=== PATIENT | female | born 1955 | race Caucasian/White ===

== ENCOUNTER 2019-06-02 19:32 | Emergency (ER) | payer MEDICARE, OTHER, SELFPAY ==
[2019-06-02 19:33] VITALS: BP 161/127; PULSE 99; RESP 22; TEMP 36; O2SAT 97; BMI 46.5
--- NOTE | 2019-06-02 20:21 | CT_ITS ---
STUDY: CT CERVICAL SPINE WITHOUT CONTRAST REASON FOR EXAM: Female, 64 years old. PT STATED SUDDEN ONSET ACUTE NECK PAIN RADIATING TO ARMS, CHEST, AND ABDOMEN RADIATION DOSAGE (If Supplied By Facility): CTDIvol = ( 28.15 ) mGy, DLP = ( 652.16 ) mGycm TECHNIQUE: High resolution transaxial imaging was performed without contrast material. Sagittal and coronal images were reconstructed. Individualized dose optimization techniques were used for this CT. COMPARISON: 08/28/2013 FINDINGS: Normal craniovertebral junction. Normal anterior atlantoaxial articulation. Normal odontoid process. Normal cervical lordosis. Normal vertebral bodies and posterior osseous elements. C2-3: Normal endplates. Normal disc height and morphology. Normal central canal and intervertebral neuroforamina. C3-4: Normal endplates. Normal disc height and morphology. Normal central canal and intervertebral neuroforamina. C4-5: Normal endplates. Normal disc height and morphology. Normal central canal and intervertebral neuroforamina. C5-6: Mild broad disc osteophyte complex and bilateral carotid joint hypertrophy produces mild spinal stenosis and mild bilateral neural foraminal stenosis. C6-7: Mild broad disc osteophyte complex and bilateral carotid joint hypertrophy produces mild spinal stenosis and mild bilateral neural foraminal stenosis. C7-T1: Normal endplates. Normal disc height and morphology. Normal central canal and intervertebral neuroforamina. Normal visualized soft tissue structures. CT/Spine Cervical without Contras IMPRESSION: Multilevel degenerative changes, as described above. Electronically Signed: Jeffrey Warner MD at 21:30 EST Tel , Service support ,
[2019-06-02] MEDS: HYDROmorphone 1 MG/ML Syringe IM ×2 (20:27→21:56)
[2019-06-02 21:48] VITALS: BP 172/83; PULSE 77; RESP 18; O2SAT 96
[2019-06-02] MEDS: Orphenadrine 60 MG/2 ML Ampul IM (21:56)
--- NOTE | 2019-06-02 22:10 | ED.DCSUM_ITS ---
- ER Visit Summary Date of Service: 06/02/19 Chief Complaint: Neck pain History of Present Illness: The patient is a 64 F who presents with neck pain that began suddenly tonight. Patient states the pain is in her posterior neck. Patient states the pain radiates into her trapezius muscles bilaterally. Jennifer gutierrez describes the pain is sharp. Patient states the pain is worse with extension. Patient states she has some pain going down both arms with some tingling in both arms. Patient denies any specific trauma or injury. Patient denies any weakness. Physical Examination: Vital signs are stable except for an elevated blood pressure 161/127. Patient is afebrile. Patient is in no acute distress. Musculoskeletal exam reveals tenderness and spasm of the cervical paraspinal muscles. There is mild midline tenderness. There is no bony crepitance or step-off. Range of motion was limited in all motions of the cervical spine secondary to pain. Strength is 5/5 bilaterally upper extremities. There are no sensory deficits noted. Heart was regular rate and rhythm. Lungs are clear and equal bilaterally. Abdomen is soft and nontender. Test Results: CT scan of the cervical spine was obtained. There are some degenerative changes noted at C5-C6 and C6-C7. There is no acute spondylolisthesis or spondylolysis. These were interpreted by the radiologist and reviewed by myself. Emergency Department Course and Treatment: Patient was given injection of Dilaudid initially. Patient was given a repeat dose of Dilaudid and Norflex. Patient states her pain was improving. Patient's blood pressure improved. P atient was given prescriptions for a short course of Dexter and Flexeril. Patient was instructed to follow-up with her primary care physician as scheduled. Patient was instructed to return if worse in any way. Patient understood and was agreeable with the plan. All questions were answered. Disposition: Discharge home Impression: Cervical strain This note was generated with [employer] dictation software. It may contain incorrect words, spelling, and punctuation that were not noted in review of the chart prior to signing ED Disposition - Plan for ED Patient: Disposition: Home or Assisted Living Diagnosis: Cervical muscle strain Instructions: NECK PAIN, No Trauma Prescriptions: cycloBENZAPRine HCl [Flexeril] 10 mg PO QHS PRN PRN #20 tab PRN Reason: Muscle Spasm Prescription Printed Hydrocodone Bitart/Apap 5-325 [Dexter 5MG-325MG] 1 tab PO Q6H PRN PRN 3 Days #10 tab PRN Reason: Pain Prescription Printed Referrals: Brittany Mercer DO [Primary Care Provider] - 3-5 Days
[2019-06-02 22:26] VITALS: BP 142/78; PULSE 92; RESP 20; O2SAT 97
--- NOTE | 2019-06-02 22:26 | ED.RN ---
THIS NURSE REVIEWED D/C INSTRUCTIONS WITH PT. PT VERBALIZED UNDERSTANDING OF INSTRUCTIONS. PT DENIES FURTHER NEEDS OR QUESTIONS AT THIS TIME
== END 2019-06-02 22:27 | disposition home or self-care (01) ==
PROVIDERS: Emergency Provider Emergency Medicine
DX: S16.1XXA Strain of muscle, fascia and tendon at neck level, initial encounter (principal); X58.XXXA Exposure to other specified factors, initial encounter; Y93.9 Activity, unspecified; Y92.9 Unspecified place or not applicable; I25.10 Atherosclerotic heart disease of native coronary artery without angina pectoris; I10 Essential (primary) hypertension; K21.9 Gastro-esophageal reflux disease without esophagitis; E66.9 Obesity, unspecified; Z95.1 Presence of aortocoronary bypass graft; Z68.42 Body mass index [BMI] 45.0-49.9, adult
CPT/HCPCS: 72125; 96372; 99282

== ENCOUNTER → 2019-10-26 11:22 | Outpatient (CLI) | payer MEDICARE, OTHER, SELFPAY | PROVIDERS: Referring Provider Internal Medicine Gastroenterology; Visit Provider Internal Medicine Gastroenterology | DX: Z11.59 Encounter for screening for other viral diseases (principal) | CPT/HCPCS: 87635; G2023; U0003 ==

== ENCOUNTER 2020-06-12 10:14 | Outpatient (RCR) | payer MEDICARE, OTHER, SELFPAY ==
[2020-06-12] MEDS: COVID-19 VACC, MRNA(PFIZER)/PF 30 MCG/0.3 ML SYRINGE IM (16:57)
[2020-07-03] MEDS: COVID-19 VACC, MRNA(PFIZER)/PF 30 MCG/0.3 ML SYRINGE IM (16:11)
== END 2020-09-16 23:59 ==
LOC: IMMUN 10:14
PROVIDERS: Visit Provider Family Medicine
DX: Z23 Encounter for immunization (principal)
CPT/HCPCS: 0001A; 0002A; 91300

== ENCOUNTER → 2020-11-24 07:37 | Outpatient (CLI) | payer MEDICARE, OTHER, SELFPAY ==
--- NOTE | 2020-11-24 07:38 | CT_ITS ---
STUDY: LOW DOSE CT LUNG CANCER SCREENING REASON FOR EXAM: Female, 65 years old. Former smoker. Patient smoked 1 pack per day for 42 years. RADIATION DOSAGE (If Supplied By Facility): CTDIvol = ( 4.02 ) mGy, DLP = ( 136.42 ) mGycm TECHNIQUE: No contrast was administered. Low dose technique was utilized (average mAS-38 and kVp 120). 1.25 mm axial source images with a slice interval of 1.25-mm were reconstructed in lung windows. 2.5 mm axial source images with a slice interval of 2.5-mm were reconstructed in lung windows. 5.0 mm axial source images with a slice interval of 5.0-mm were reconstructed in soft tissue windows. Nodule measured using lung windows on PACS and/or independent workstation with automated measurement of minimum and maximum diameter. Nodule measurement reported as average diameter rounded to the nearest whole number. Growth is defined as an increase ins size of greater than 1.5 mm. COMPARISON: None. NODULES: There is a 4.1 mm pleural-based nodule in the left lower lobe as seen on axial image #137. 2 mm noncalcified nodule in the peripheral lateral aspect of the right upper lobe as seen on axial image #72. Emphysema: Mild degree of increased markings at the lung bases. There is elevation of the right hemidiaphragm. There is a 1.3 cm x 1.6 cm pleural-based nodular density in the posterior right lower lobe adjacent to the right hemidiaphragm. This may represent a focal area of scarring although correlation with a PET scan is recommended. Endobronchial lesion: None Aorta: Atherosclerotic plaque formation of the aortic arch. Coronary arteries: Prior catheters. Coronary artery calcification. Heart: Unremarkable Pulmonary artery: Unremarkable Mediastinal nodes: Other chest and abdominal findings: CT/Low Dose CT Lung Screening IMPRESSION: Lung-RADS category 4A - Screening at 3 months with LDCT or evaluation with PET/CT may be used. IMPORTANT NOTES FOR USE: ACR Lung-RADS Version 1.1 Assessment Categories Release Date: 2018 Category: Coded 0-4 bases on nodule(s) with highest degree of suspicion. Negative screen is defined as categories 1 and 2; a positive screen is defined as categories 3 and 4. Category 3 and 4A nodules that are unchanged on interval CT should be coded as category 2, and individuals returned to screening in 12 months. Category 4X: Category 3 or 4 nodules with additional imaging findings that increase the suspicion of lung cancer, such as spiculation, GGN that doubles in size in 1 year, enlarged lymph notes, etc. Category Modifiers: S (significant finding unrelated to lung cancer) Electronically Signed: Cam Castro MD at 15:18 EDT , Service support ,
== END ==
PROVIDERS: Referring Provider Internal Medicine Pulmonary Disease; Visit Provider Internal Medicine Pulmonary Disease
DX: Z12.2 Encounter for screening for malignant neoplasm of respiratory organs (principal); Z87.891 Personal history of nicotine dependence
CPT/HCPCS: 71271

== ENCOUNTER → 2021-02-17 16:00 | Outpatient (CLI) | payer MEDICARE, OTHER, SELFPAY ==
--- NOTE | 2021-02-17 15:00 | PET_ITS ---
EXAMINATION: FDG PET-CT INDICATIONS: A 66-year-old female with reported history of pulmonary nodularity. COMPARISON EXAMINATION: CT of the chest report dated 11/26/20 TECHNIQUE: Following the intravenous administration of 17.53 mCi of F-18 deoxyglucose via the right antecubital fossa, multiplanar image acquisitions of the neck, chest, abdomen and pelvis to level of mid thigh, obtained at one hour post radiopharmaceutical administration contemporaneously interpreted with the current CT of the neck, chest, abdomen and pelvis, to level of mid thigh, dated 02/17/[address] of the chest report dated 11/26/20 reveals: BLOOD GLUCOSE LEVEL:?? 120 mg/dl?HEIGHT:?65 inches?WEIGHT: 280 lbs. FINDINGS: 1. There is no quantitative scintigraphic evidence of abnormal increased glucose metabolism within the context of the bilateral hemithorax pulmonary parenchyma non-glucose avid parenchymal densities defined in the right-left lower lobes to correlate with structural changes noted on review of CT of the thorax dated 02/17/21. 2. Normal physiologic distribution of the radiopharmaceutical is apparent in the hepatic and splenic parenchyma, both renal units, bladder and visualized intestinal tract. The visualized portion of the cerebral cortical-subcortical structures demonstrate symmetric and preserved glucose metabolism. Diffuse radiopharmaceutical concentration is noted in all four quadrants of the abdomen and pelvis. The right kidney demonstrates markedly prominent collecting system activity extending from the superior to inferior calyx, renal pelvis and proximal-mid ureter. Pertinent CT findings are as follows: CHEST: None-calcified densities noted in the right lower posteromedial, left lower posterolateral lung zones (R-L lower lobes) demonstrate no evidence of quantitatively significant-discernible increased FDG uptake. Bilateral subcentimeter axillary soft tissue is ametabolic. There is atherosclerotic calcification defined in the thoracic aorta without evidence of dilatation-aneurysm formation. Coronary arterial calcification is observed. ABDOMEN AND PELVIS: A paraumbilical hernia is noted with associated intestinal tract. There is atherosclerotic calcification defined in the abdominal aorta without evidence of dilatation-aneurysm formation. Pelvic arterial calcification is observed. Calcification is defined within the right kidney. Bilateral subcentimeter inguinal soft tissue is non-glucose avid. The uterus appears surgically absent. Calcifications are noted in the bilateral lower hemipelvis. SKELETAL: Degenerative changes are noted in the cervical, thoracic and lumbar spine without evidence of increased radiopharmaceutical concentration. PET/PET/CT Tumor Base -Thigh Init IMPRESSION: 1. NEGATIVE EXAMINATION. There is no quantitative scintigraphic evidence of abnormal increased glucose metabolism within the context of the bilateral hemithorax pulmonary parenchyma non-glucose avid parenchymal densities defined in the right-left lower lobes to correlate with structural changes noted on review of CT of the thorax dated 02/17/21. 2. Anatomic stability may be ensured in the nonglucose avid bilateral hemithorax pulmonary parenchymal densities defined with repeat FDG PET-CT imaging and/or CT of the chest in 3-6 months if clinically indicated. (Naga, Seminars in Thoracic and Cardiovascular Surgery 14:292, 2001). Electronic Signature Jeffrey Lobo D.O. Accurate Quantification of SUVs for this report are calculated using the exclusive [employer]. (U.S. Patent No. [id number] [id number] 983). Standardization and correction of the FDG SUV metric via [employer] technology allow for vendor non-specific objective quantitative examination comparison and optimization of the sensitivity and specificity of the FDG PET-CT examination. Electronically Signed: Jeffrey Lobo DO at 22:54 EST Tel , Service support ,
== END ==
PROVIDERS: Referring Provider Internal Medicine Pulmonary Disease; Visit Provider Internal Medicine Pulmonary Disease
DX: R91.1 Solitary pulmonary nodule (principal)
CPT/HCPCS: 78815; A9552

== ENCOUNTER 2021-06-09 10:22 | Outpatient (CLI) | payer MEDICARE, OTHER, SELFPAY ==
--- NOTE | 2021-06-09 10:38 | RAD_ITS ---
STUDY: X-RAY CHEST REASON FOR EXAM: Female, 66 years old. Chest pain TECHNIQUE: PA and lateral views of the chest. COMPARISON: None. FINDINGS: Chronic elevation of the right hemidiaphragm There are interstitial fibrotic changes of the lungs. There is no demonstrated pleural abnormality. Sternal cerclage wires and vascular clips are present from a prior sternotomy and coronary artery bypass graft procedure (CABG). Normal mediastinum and julien. Normal visualized pulmonary arteries. There is atherosclerotic calcification of the aortic arch with tortuosity. Normal visualized thoracic spine. Normal visualized ribs, clavicles, and shoulders. There is no demonstrated abnormality of the visualized soft tissue structures of the upper abdomen. RAD/Chest PA and Lateral IMPRESSION: Degenerative changes, as described above. No demonstrated acute cardiopulmonary process. Electronically Signed: Maykel Luna MD at 17:10 EST ,
[2021-06-09 11:57] LABS: Ferritin 4 ng/mL (8-252)
== END 2021-06-09 23:59 | disposition home or self-care (01) ==
LOC: LAB 10:28
PROVIDERS: Referring Provider Internal Medicine Pulmonary Disease; Visit Provider Internal Medicine Pulmonary Disease
DX: R91.1 Solitary pulmonary nodule (principal); G25.81 Restless legs syndrome; Z86.2 Personal history of diseases of the blood and blood-forming organs and certain disorders involving the immune mechanism
CPT/HCPCS: 36415; 71046; 82728

== ENCOUNTER → 2021-08-07 | Outpatient (CLI) | payer MEDICARE, OTHER, SELFPAY ==
[2021-08-07 12:09] LABS: Hematocrit 39.1 % (37-47); Hemoglobin 11.8 g/dL (12.0-15.0); Mean Corp Hgb Conc 30.2 g/dL (32-36); Mean Corpuscular Volume 86.3 fL (81-99); Mean Platelet Vol. 10.6 fl (6.2-12.0); Platelet Count 257 K/mm3 (150-450); Red Blood Count 4.53 M/mm3 (4.2-5.4); White Blood Count 4.9 K/mm3 (4.4-11.0)
[2021-08-07 12:26] LABS: Iron 29 ug/dL (50-170); Iron Binding Capacity,Total 416 ug/dL (250-450)
== END | disposition home or self-care (01) ==
LOC: MTLAB 10:27
PROVIDERS: Referring Provider Internal Medicine Pulmonary Disease; Visit Provider Internal Medicine Pulmonary Disease
DX: D64.9 Anemia, unspecified (principal)
CPT/HCPCS: 36415; 83540; 83550; 85027

== ENCOUNTER 2021-08-21 12:47 | Day surgery (SDC) | payer MEDICARE, OTHER, SELFPAY ==
--- NOTE | 2021-08-20 08:35 | RAD_ITS ---
STUDY: X-RAY - ABDOMEN/PELVIS REASON FOR EXAM: Female, 66 years old. PRE-OP -- WILL CALL WHEN DONE WITH PRE-OP SWAB TECHNIQUE: Preop COMPARISON: None. FINDINGS: Normal visualized lung bases. There is an unremarkable bowel gas pattern. There is no demonstrated free abdominal air. The visualized liver, spleen and kidneys are grossly normal in size and morphology. Possible gallstone at the right upper quadrant. Normal soft tissue structures. Normal visualized osseous structures. RAD/Abdomen Single View IMPRESSION: Normal x-ray examination of the abdomen and pelvis. Possible gallstone. Electronically Signed: Daniel Manning MD at 23:10 EDT ,
[2021-08-21 12:59] VITALS: BP 145/72; PULSE 66; RESP 16; TEMP 36.9; O2SAT 98; BMI 43.1
--- NOTE | 2021-08-21 12:59 | RAD_ITS ---
STUDY: X-RAY - ABDOMEN/PELVIS REASON FOR EXAM: Female, 66 years old. PRE OP TECHNIQUE: Single AP view of the abdomen / pelvis. COMPARISON: None. FINDINGS: Normal visualized lung bases. There is an unremarkable bowel gas pattern. There is no demonstrated free abdominal air. 2 cm calcification overlies the right kidney, possible nephrolithiasis. There are calcified phleboliths in the pelvis. There are diffuse degenerative changes of the visualized lumbar spine. RAD/Abdomen Single View IMPRESSION: Nonobstructive bowel gas pattern. Suspect right renal calculus. Electronically Signed: Daron Carrington MD ([place]) at 17:26 EDT ,
[2021-08-21] MEDS: Lactated Ringers 1,000 ML 15 ML IV (13:41)
--- NOTE | 2021-08-21 15:19 | HP.PCM_ITS ---
HPI - General HPI Narrative DIOMEDES CASE, is a 66 F who presents for ESWL and treatment of right kindey stone treatment. [facility] Medical History (Updated 08/21/21 @ 15:[address] Luke Marshall MD) Alcohol use Anemia Arthritis Asthma Back pain Cardiology follow-up encounter COPD (chronic obstructive pulmonary disease) Former smoker Gastric reflux High cholesterol History of echocardiogram History of pain when walking History of stress test History of ulceration Hypertension Injury of back Post-menopausal Restless legs Shortness of breath on exertion Sleep apnea Wears glasses Home Medications omeprazole 40 mg PO BID 08/28/13 [History Last Taken 08/21/21] furosemide 20 mg PO DAILY 06/02/19 [History Last Taken Unknown] gabapentin 400 mg PO Q6H 06/02/19 [History Last Taken Unknown] losartan 100 mg PO DAILY 06/02/19 [History Last Taken 08/21/21] metoprolol tartrate 25 mg PO DAILY 06/02/19 [History Last Taken 08/21/21] ropinirole 1 mg PO TID 06/02/19 [History Last Taken Unknown] Breo Ellipta 1 inh INHALATION DAILY 08/18/21 [History Last Taken Unknown] albuterol sulfate 2 puff INHALATION PRN PRN 08/18/21 [History Last Taken Unknown] amlodipine 2.5 mg PO DAILY 08/18/21 [History Last Taken 08/21/21] atorvastatin 40 mg PO DAILY 08/18/21 [History Last Taken Unknown] cyclosporine [Restasis] 1 drp EACH EYE Q12H 08/18/21 [History Last Taken Unknown] ferrous gluconate 648 mg PO DAILY 08/18/21 [History Last Taken Unknown] mirtazapine 7.5 mg PO QHS 08/18/21 [History Last Taken Unknown] montelukast 10 mg PO DAILY 08/18/21 [History Last Taken Unknown] ciprofloxacin HCl [Cipro] 500 mg PO BID #10 tab 08/21/21 [Rx Last Taken Unknown] oxycodone-acetaminophen 1 tab PO Q4H PRN 7 Days #14 tab 08/21/21 [Rx Last Taken Unknown] Allergy/AdvReac Type Severity Reaction Status Date / Time codeine AdvReac Nausea/Vom/ Verified 08/21/21 13:41 Diarrhea meloxicam [From Mobic] AdvReac Other Verified 08/21/21 13:41 morphine AdvReac Other Verified 08/21/21 13:41 Penicillins AdvReac Other Verified 08/21/21 13:41 Surgical History (Updated 08/18/21 @ 11:31 by Suzie Jones) History of cardiac catheterization Hx laparoscopic cholecystectomy Hx of gastric bypass Hx of heart bypass surgery Social History Smoking Status: Former smoker Vital Signs Vital Signs Vital Signs: 08/21/21 12:59 08/21/21 13:39 Temperature 98.4 F Temperature Source Temporal Pulse Rate 66 Respiratory Rate 16 Respiratory Pattern Normal Blood Pressure 145/72 H Blood Pressure Mean 96 Blood Pressure Source Monitor Blood Pressure Position Semi-Fowlers Blood Pressure Location Right Arm Pulse Ox 98 Oxygen Delivery Method Room Air Weight Weight: 117.48 kg Body Mass Index (BMI) 43.1 Results Lab / Micro Data Micro: Microbiology 08/20/21 08:35 Interface Orders SARS-CoV-2 Antigen (Rapid) - Final Radiology Impression KUB X-Ray 08/20/21 08:35 IMPRESSION: Normal x-ray examination of the abdomen and pelvis. Possible gallstone. Electronically Signed: Daniel Manning MD at 23:10 EDT ,
--- NOTE | 2021-08-21 15:19 | PCM.DC ---
Discharge Instructions Diet Discharge Diet: No restrictions Activity Discharge Activity: Return to Normal Activity and May Not Drive (while taking narcotic pain medications.) Dressing / Incision Call your doctor if you observe: Fever of 101 or Higher Follow Up Care Please Follow Up With: Luke Marshall MD When: Call [phone] for an appointment Test Results: Test results from this visit will be discussed in further detail at your follow-up appointment, if applicable. Discharge Plan Admission Primary Reason for Your Visit: Right ESWL Attending Provider: Luke Marshall Primary Care Provider: Brittany Mercer Instructions Patient Instructions: Shock Wave Lithotripsy Discharge Orders/Prescriptions Prescriptions: New ciprofloxacin HCl [Cipro] 500 mg tablet 500 mg PO BID Qty: 10 RF: 0 oxycodone-acetaminophen 2.5-325 mg tablet 1 tab PO Q4H PRN (Reason: pain) 7 Days Qty: 14 RF: 0 Continued omeprazole 20 MG capsule 40 mg PO BID RF: 0 losartan 100 MG tablet 100 mg PO DAILY RF: 0 metoprolol tartrate 25 MG tablet 25 mg PO DAILY RF: 0 ropinirole 1 MG tablet 1 mg PO TID RF: 0 gabapentin 300 MG capsule 400 mg PO Q6H RF: 0 furosemide 20 MG tablet 20 mg PO DAILY RF: 0 atorvastatin 40 mg tablet 40 mg PO DAILY RF: 0 amlodipine 2.5 mg tablet 2.5 mg PO DAILY RF: 0 montelukast 10 mg tablet 10 mg PO DAILY RF: 0 albuterol sulfate 90 mcg/actuation HFA aerosol inhaler 2 puff INHALATION PRN PRN (Reason: COPD) RF: 0 cyclosporine [Restasis] 0.05 % Dropperette 1 drp EACH EYE Q12H RF: 0 mirtazapine 7.5 mg tablet 7.5 mg PO QHS RF: 0 ferrous gluconate 325 mg (37.5 mg iron) Tablet 648 mg PO DAILY RF: 0 Breo Ellipta 200-25 mcg/dose blister with device 1 inh INHALATION DAILY RF: 0 Discontinued aspirin 81 mg Capsule 81 mg PO DAILY RF: 0 Referrals / Follow Up: Luke Marshall MD [STAFF PHYSICIAN] - Brittany Mercer DO [Primary Care Provider] - Disposition Disposition (needs filled in before D/C Order can be placed): Home, Self Care
[2021-08-21] MEDS: Cefazolin 2 GM in 0.9% Normal Saline 100 ML IV (15:31)
--- NOTE | 2021-08-21 16:21 | PCM.OPRPT ---
Report of Operation Date of Procedure: 08/21/21 Pre-Operative Diagnosis: right large kidney stone Post-Operative Diagnosis: same Surgery/Procedure Performed:: cystoscopy and right stent placement and Right ESWL Description of Surgical Findings:: Patient presents to the hospital for treatment of a kidney stone with shockwave lithotripsy. In the preoperative area and x-ray was done to confirm the location of the stone. The x-ray was reviewed and the stone location was reviewed. In the preoperative setting I spoke with the patient regarding the treatment of the stone how the treatment would be conducted and the expectations after surgery. The patient understands there is a risk of bleeding and infection. Also discussed the very rare risk of hematoma or damage to the kidney. We also discussed the risk that the shockwave machine will fail to break the stone adequately and that the patient may need other surgical procedures. We also discussed the possibility that the patient may need a stent after the procedure. After reviewing the procedure with the patient, the patient is signed the consent form all the patient's questions were addressed and was taken back to the operating room for treatment of a kidney stone. Patient was taken back to the operating room, patient was identified by the nursing staff, we identified the side of the treatment and the patient side of treatment had been marked by my initials. The patient underwent general anesthetic and was placed supine on the lithotripter table. The urethra and genitals were prepped and draped in usual sterile fashion. Using a 21 Portuguese rigid cystourethroscope the entire length of the urethra was normal then went into the bladder. Identified the trigone the left and right ureteral orifice. I then cannulated the right orifice and advanced a wire up into the kidney. I then backloaded a 5 Portuguese open ended catheter over the wire and injected contrast to delineate the anatomy. After the retrograde was performed I then used fluoroscopic images and guidance to advanced a wire up into the kidney and over the 0.038 glidewire I advanced a 6 Portuguese by 26 cm double pigtail stent. I then pulled the 0.038 Glidewire off and the stent coiled in the kidney bladder good position. The bladder was then drained. We confirmed the position of the stent by fluoroscopy. We then used fluoroscopy to identify the stone on the Right side. We then positioned the patient under the lithotripter and we used triangulation technique to identify the location of the stone and then we made sure that the stone was engaged in the F2 focal point of F2 Donier lithoprior machine. Once the patient was positioned appropriately and the stone was identified and placed in the F2 focal point of the lithotripter machine we then proceeded with shockwave lithotripsy. In the beginning the shockwave was delivered at a rate of 90 shocks per minute, we monitor the EKG for any ectopy. The power was slowly increased to 5 kV and subsequently at the 7 kV. We then proceeded with the treatment we move the therapy had around during the treatment to make sure the stone stayed in the F2 focal point during the entire treatment and after 3000 shockwaves were delivered to the stone under fluoroscopic guidance the treatment was completed. The patient was given instructions to call the office to make an a follow-up appointment with an xray to evaluate the success of the treatment, pateint understands that its possible the stones may need another procedure, the stone did break up really well but such a large stone, she very likely will need one more treatment. At this point the patient's anesthetic was reversed patient was extubated and taken back to the PACU in stable condition. Type of Anesthesia: General Drains: right stent Admit VTE Documentation VTE Present on Admission: No VTE Mechan Device Prophylaxis: SCD's VTE Pharm Prophylaxis ordered?: No
[2021-08-21 16:30] VITALS: BP 145/72; BP 148/74; PULSE 67; RESP 16; TEMP 36.4; O2SAT 98
[2021-08-21 16:45] VITALS: BP 145/72; BP 155/84; PULSE 73; RESP 16; O2SAT 100
[2021-08-21 16:55] VITALS: BP 145/72; BP 162/75; PULSE 64; RESP 16; TEMP 36.3; O2SAT 96
[2021-08-21 17:25] VITALS: BP 145/72
[2021-08-21 17:26] VITALS: BP 145/72
== END 2021-08-21 17:36 | disposition home or self-care (01) ==
LOC: SDC 12:47 → AC 12:49
PROVIDERS: Referring Provider Urology; Visit Provider Urology
PROC: (CPT 50590; principal; 2021-08-21 15:55)
DX: N20.0 Calculus of kidney (principal); J43.9 Emphysema, unspecified; J45.20 Mild intermittent asthma, uncomplicated; Z20.822 Contact with and (suspected) exposure to COVID-19; I10 Essential (primary) hypertension; E78.00 Pure hypercholesterolemia, unspecified; K21.9 Gastro-esophageal reflux disease without esophagitis; Z79.899 Other long term (current) drug therapy; Z78.0 Asymptomatic menopausal state; Z87.891 Personal history of nicotine dependence; Z98.84 Bariatric surgery status; Z95.1 Presence of aortocoronary bypass graft
CPT/HCPCS: 52332; 00873; 74018; 87426; C9803; J7120; C1769; C2617; J2405

== ENCOUNTER → 2021-08-27 | Outpatient (CLI) | payer MEDICARE, OTHER, SELFPAY ==
--- NOTE | 2021-08-27 08:55 | RAD_ITS ---
STUDY: X-RAY - ABDOMEN/PELVIS REASON FOR EXAM: Female, 66 years old. POST OP TECHNIQUE: Two AP supine views of the abdomen and pelvis. COMPARISON: None. FINDINGS: Right ureteral stent in good position. 2 clusters of stone fragments seen in the right kidney measuring respectively 10 mm and 25 mm. There is an unremarkable bowel gas pattern. There is no demonstrated free abdominal air. The visualized liver, spleen are grossly normal in size and morphology. Normal soft tissue structures. There are diffuse degenerative changes of the visualized lumbar spine. RAD/Abdomen Single View IMPRESSION: Right ureteral stent in good position. 2 clusters of stone fragments seen in the right kidney measuring respectively 10 mm and 25 mm. Electronically Signed: Tamica Cormier MD at 1:34 EDT ,
== END | disposition home or self-care (01) ==
LOC: RAD 08:49
PROVIDERS: Referring Provider Urology; Visit Provider Urology
DX: N20.0 Calculus of kidney (principal)
CPT/HCPCS: 74018

== ENCOUNTER 2021-09-04 07:52 | Day surgery (SDC) | payer MEDICARE, OTHER, SELFPAY ==
[2021-09-04] VITALS (8 sets, daily range): BP systolic 144–192; BP diastolic 66–84; PULSE 53–65; RESP 16–17; TEMP 35.6–37.3; O2SAT 91–97; BMI 43.4
--- NOTE | 2021-09-04 08:04 | RAD_ITS ---
HISTORY: PREOP RIGHT KIDNEY STONE. TECHNIQUE: XR Abdomen 1 View. COMPARISON: 08/27/2021. FINDINGS: BOWEL GAS PATTERN: Gaseous distention of bowel. FREE AIR: Not assessed on supine view. CALCIFICATIONS: Large right renal calculi again seen with double-J ureteral stent noted. Bilateral pelvic phleboliths. BONES AND SOFT TISSUES: Mild degenerative changes of the osseous structures. Midline sternotomy. Surgical clips in the left upper quadrant. RAD/Abdomen Single View IMPRESSION: Redemonstration of large right renal calculi with double-J ureteral stent noted. Electronically Signed: Cindi Flores MD at 8:27 EDT ,
[2021-09-04] MEDS: Lactated Ringers 1,000 ML 15 ML IV (08:48)
[2021-09-04] MEDS: Cefazolin 2 GM in 0.9% Normal Saline 100 ML IV (10:15)
--- NOTE | 2021-09-04 10:15 | HP.PCM_ITS ---
HPI - General HPI Narrative DIOMEDES CASE, is a 66 F who presents for second stage shockwave treatment of her large stones in the right kidney she underwent shockwave lithotripsy about 2 weeks ago she still has significant fragments left has a initial stone was a very large. She understands it is possible she may need more than 1 more t reatment since it is such a large stone. [facility] Medical History Alcohol use Anemia Arthritis Asthma Back pain Cardiology follow-up encounter COPD (chronic obstructive pulmonary disease) Former smoker Gastric reflux High cholesterol History of echocardiogram History of pain when walking History of stress test History of ulceration Hypertension Injury of back Post-menopausal Restless legs Shortness of breath on exertion Sleep apnea Wears glasses Home Medications omeprazole 40 mg PO BID 08/28/13 [History Last Taken 08/21/21] furosemide 20 mg PO DAILY 06/02/19 [History Last Taken Unknown] gabapentin 400 mg PO Q6H 06/02/19 [History Last Taken Unknown] losartan 100 mg PO DAILY 06/02/19 [History Last Taken 08/21/21] metoprolol tartrate 25 mg PO DAILY 06/02/19 [History Last Taken 08/21/21] ropinirole 1 mg PO TID 06/02/19 [History Last Taken Unknown] Breo Ellipta 1 inh INHALATION DAILY 08/18/21 [History Last Taken Unknown] albuterol sulfate 2 puff INHALATION PRN PRN 08/18/21 [History Last Taken Unknown] amlodipine 2.5 mg PO DAILY 08/18/21 [History Last Taken 08/21/21] atorvastatin 40 mg PO DAILY 08/18/21 [History Last Taken Unknown] cyclosporine [Restasis] 1 drp EACH EYE Q12H 08/18/21 [History Last Taken Unknown] ferrous gluconate 648 mg PO DAILY 08/18/21 [History Last Taken Unknown] mirtazapine 7.5 mg PO QHS 08/18/21 [History Last Taken Unknown] montelukast 10 mg PO DAILY 08/18/21 [History Last Taken Unknown] oxycodone-acetaminophen 1 tab PO Q4H PRN 7 Days #14 tab 08/21/21 [Rx Last Taken Unknown] sulfamethoxazole-trimethoprim [Bactrim DS] 1 tab PO BID 05/23/22 [History Last Taken Unknown] ciprofloxacin HCl [Cipro] 500 mg PO BID #6 tab 09/04/21 [Rx Last Taken Unknown] ibuprofen 600 mg PO Q6H PRN #14 tab 09/04/21 [Rx Last Taken Unknown] oxycodone-acetaminophen 1 tab PO Q6H PRN 7 Days #20 tab 09/04/21 [Rx Last Taken Unknown] Allergy/AdvReac Type Severity Reaction Status Date / Time codeine AdvReac Nausea/Vom/ Verified 09/04/21 08:45 Diarrhea meloxicam [From Mobic] AdvReac Other Verified 09/04/21 08:45 morphine AdvReac Other Verified 09/04/21 08:45 Penicillins AdvReac Other Verified 09/04/21 08:45 Surgical History (Updated 08/31/21 @ 14:57 by Tessie Fuentes) History of cardiac catheterization History of cystoscopy Hx laparoscopic cholecystectomy Hx of gastric bypass Hx of heart bypass surgery Social History Smoking Status: Former smoker Vital Signs Vital Signs Vital Signs: 09/04/21 08:45 Temperature 99.1 F Temperature Source Temporal Pulse Rate 65 Respiratory Rate 16 Respiratory Pattern Normal Blood Pressure 144/84 H Blood Pressure Mean 104 Blood Pressure Source Monitor Blood Pressure Position Semi-Fowlers Blood Pressure Location Right Arm Pulse Ox 95 Oxygen Delivery Method Room Air Weight Weight: 118.388 kg Body Mass Index (BMI) 43.4 Results Radiology Impression KUB X-Ray 09/04/21 08:04 IMPRESSION: Redemonstration of large right renal calculi with double-J ureteral stent noted. Electronically Signed: Cindi Flores MD at 8:27 EDT ,
--- NOTE | 2021-09-04 10:16 | PCM.DC ---
Discharge Instructions Diet Discharge Diet: No restrictions Activity Discharge Activity: Return to Normal Activity and May Not Drive (while taking narcotic pain medications.) Dressing / Incision Call your doctor if you observe: Fever of 101 or Higher Follow Up Care Please Follow Up With: Luke Marshall MD When: Call [phone] for an appointment Test Results: Test results from this visit will be discussed in further detail at your follow-up appointment, if applicable. Discharge Plan Admission Primary Reason for Your Visit: 2nd stage ESWL Attending Provider: Luke Marshall Primary Care Provider: Brittany Mercer Instructions Patient Instructions: Shock Wave Lithotripsy Discharge Orders/Prescriptions Prescriptions: New ciprofloxacin HCl [Cipro] 500 mg tablet 500 mg PO BID Qty: 6 RF: 0 oxycodone-acetaminophen 5-325 mg tablet 1 tab PO Q6H PRN (Reason: pain) 7 Days Qty: 20 RF: 0 ibuprofen 600 mg tablet 600 mg PO Q6H PRN (Reason: severe pain (scale score 7-10)) Qty: 14 RF: 0 Continued omeprazole 20 MG capsule 40 mg PO BID RF: 0 losartan 100 MG tablet 100 mg PO DAILY RF: 0 metoprolol tartrate 25 MG tablet 25 mg PO DAILY RF: 0 ropinirole 1 MG tablet 1 mg PO TID RF: 0 gabapentin 300 MG capsule 400 mg PO Q6H RF: 0 furosemide 20 MG tablet 20 mg PO DAILY RF: 0 atorvastatin 40 mg tablet 40 mg PO DAILY RF: 0 amlodipine 2.5 mg tablet 2.5 mg PO DAILY RF: 0 montelukast 10 mg tablet 10 mg PO DAILY RF: 0 albuterol sulfate 90 mcg/actuation HFA aerosol inhaler 2 puff INHALATION PRN PRN (Reason: COPD) RF: 0 cyclosporine [Restasis] 0.05 % Dropperette 1 drp EACH EYE Q12H RF: 0 mirtazapine 7.5 mg tablet 7.5 mg PO QHS RF: 0 ferrous gluconate 325 mg (37.5 mg iron) Tablet 648 mg PO DAILY RF: 0 Breo Ellipta 200-25 mcg/dose blister with device 1 inh INHALATION DAILY RF: 0 oxycodone-acetaminophen 2.5-325 mg tablet 1 tab PO Q4H PRN (Reason: pain) 7 Days Qty: 14 RF: 0 sulfamethoxazole-trimethoprim [Bactrim DS] 800-160 mg Tablet 1 tab PO BID RF: 0 Referrals / Follow Up: Luke Marshall MD [STAFF PHYSICIAN] - Brittany Mercer DO [Primary Care Provider] - Disposition Disposition (needs filled in before D/C Order can be placed): Home, Self Care
--- NOTE | 2021-09-04 10:48 | PCM.OPRPT ---
Report of Operation Date of Procedure: 09/04/21 Pre-Operative Diagnosis: Status post ESWL for 1s5 stage very large right kidney stone Post-Operative Diagnosis: Same Surgery/Procedure Performed:: Right extracorporeal shockwave lithotripsy, stage related procedure Description of Surgical Findings:: Patient presents to the hospital for treatment of a kidney stone with shockwave lithotripsy. In the preoperative area and x-ray was done to confirm the location of the stone. The x-ray was reviewed and the stone location was reviewed. In the preoperative setting I spoke with the patient regarding the treatment of the stone how the treatment would be conducted and the expectations after surgery. The patient understands there is a risk of bleeding and infection. Also discussed the very rare risk of hematoma or damage to the kidney. We also discussed the risk that the shockwave machine will fail to break the stone adequately and that the patient may need other surgical procedures. We also discussed the possibility that the patient may need a stent after the procedure. After reviewing the procedure with the patient, the patient is signed the consent form all the patient's questions were addressed and was taken back to the operating room for treatment of a kidney stone. Patient was taken back to the operating room, patient was identified by the nursing staff, we identified the side of the treatment and the patient side of treatment had been marked by my initials. The patient underwent general anesthetic and was placed supine on the lithotripter table. We then used fluoroscopy to identify the stone framents on the Right side. We then positioned the patient under the lithotripter and we used triangulation technique to identify the location of the stone and then we made sure that the stone was engaged in the F2 focal point of F2 Donier lithoprior machine. Once the patient was positioned appropriately and the stone was identified and placed in the F2 focal point of the lithotripter machine we then proceeded with shockwave lithotripsy. In the beginning the shockwave was delivered at a rate of 90 shocks per minute, we monitor the EKG for any ectopy. The power was slowly increased to 5 kV and subsequently at the 7 kV. We then proceeded with the treatment we move the therapy had around during the treatment to make sure the stone stayed in the F2 focal point during the entire treatment and after 3000 shockwaves were delivered to the stones under fluoroscopic guidance the treatment was completed. The patient was given instructions to call the office to make an a follow-up appointment with an xray to evaluate the success of the treatment, pateint understands that its possible the stones may need another procedure.At this point the patient's anesthetic was reversed patient was extubated and taken back to the PACU in stable condition. Surgeon: leann Type of Anesthesia: General Drains: stent in place Admit VTE Documentation VTE Present on Admission: No VTE Mechan Device Prophylaxis: SCD's VTE Pharm Prophylaxis ordered?: No
[2021-09-04] MEDS: Sodium Citrate/Citric Acid 30 ML UDC PO (11:48)
== END 2021-09-04 12:30 | disposition home or self-care (01) ==
LOC: SDC 07:55 → AC 07:55
PROVIDERS: Referring Provider Urology; Visit Provider Urology
PROC: (CPT 50590; principal; 2021-09-04 10:10)
DX: N20.0 Calculus of kidney (principal); J44.9 Chronic obstructive pulmonary disease, unspecified; I25.10 Atherosclerotic heart disease of native coronary artery without angina pectoris; I10 Essential (primary) hypertension; E78.00 Pure hypercholesterolemia, unspecified; K21.9 Gastro-esophageal reflux disease without esophagitis; M19.90 Unspecified osteoarthritis, unspecified site; Z95.5 Presence of coronary angioplasty implant and graft; Z98.84 Bariatric surgery status; Z79.82 Long term (current) use of aspirin; Z79.899 Other long term (current) drug therapy; Z87.891 Personal history of nicotine dependence
CPT/HCPCS: 50590; 00873; 74018; J7120; J2405

== ENCOUNTER → 2021-09-10 | Outpatient (CLI) | payer MEDICARE, OTHER, SELFPAY ==
--- NOTE | 2021-09-10 13:35 | RAD_ITS ---
EXAM: XR ABDOMEN, 1 VIEW CLINICAL INDICATION: CALCULUS OF KIDNEY Technologist Notes PAIN ON RIGHT SIDE. PATIENT STATES HX KIDNEY STONES. HX OF LITHOTRIPSY LAST TUESDAY. TECHNIQUE: Frontal supine view of the abdomen/pelvis. This report was created using [employer] report generation technology. COMPARISON: 09/04 2021 FINDINGS: LOWER THORAX: See below. GASTROINTESTINAL TRACT: Stool throughout the colon suggesting constipation. Non-obstructive. No bowel or stomach distention. ORGANS: There are calcified phleboliths in the pelvis. This makes differentiation with distal ureteral stones difficult. Multiple median sternotomy wires are noted consistent for cardiac surgery. No organomegaly. BONES/JOINTS: Degenerative findings in the lumbar spine. SOFT TISSUES: No acute pathology. TUBES, LINES AND DEVICES: Double-J right ureteral stent. A visualized overlying the right kidney. RAD/Abdomen Single View IMPRESSION: 1. Double-J right ureteral stent. A visualized overlying the right kidney. 2. Stool throughout the colon suggesting constipation. Electronically Signed: Catalino Soliman MD at 19:20 EDT ,
== END | disposition home or self-care (01) ==
LOC: RAD 13:23
PROVIDERS: Referring Provider Urology; Visit Provider Urology
DX: N20.0 Calculus of kidney (principal)
CPT/HCPCS: 74018

== ENCOUNTER → 2021-10-29 | Outpatient (CLI) | payer MEDICARE, OTHER, SELFPAY ==
--- NOTE | 2021-10-29 07:41 | RAD_ITS ---
STUDY: XR Abdomen 1 View 10/29/2021 7:47 AM REASON FOR EXAM: Female, 66 years old. ABDOMINAL PAIN KUB TECHNIQUE: XR Abdomen 1 View COMPARISON: None FINDINGS: Normal visualized lung bases. There is a moderate amount of colonic fecal material. There is no demonstrated free abdominal air. The visualized liver, spleen and kidneys are grossly normal in size and morphology. Normal soft tissue structures. There are diffuse degenerative changes of the visualized lumbar spine. Multiple median sternotomy wires are noted consistent for cardiac surgery. There is a left lower quadrant ostomy noted. There is a loop of colon entering and exiting the ostomy. This may be a diverting colostomy. RAD/Abdomen Single View IMPRESSION: Constipation. Electronically Signed: Catalino Soliman MD at 14:58 EDT ,
== END | disposition home or self-care (01) ==
LOC: RAD.FUTURE 07:39
PROVIDERS: Referring Provider Urology; Visit Provider Urology
DX: N20.0 Calculus of kidney (principal)
CPT/HCPCS: 74018

== ENCOUNTER → 2021-11-19 | Outpatient (CLI) | payer MEDICARE, OTHER, SELFPAY ==
--- NOTE | 2021-11-19 07:12 | CT_ITS ---
INDICATION: R91.1 EXAMINATION: CT CHEST WITHOUT CONTRAST - CT Chest W/O Contrast Injection TECHNIQUE: Helically acquired images were obtained of the chest. A radiation dose optimization technique was used for this scan. IV Contrast dosage and agent: None. COMPARISON: None. FINDINGS: Status post median sternotomy. LUNGS, PLEURA AND LARGE AIRWAYS: There is no change in a 4 mm noncalcified nodule in the subpleural left lower lobe lung zone image 69 consistent with a noncalcified granuloma. This requires no further follow-up. No pleural effusion or thickening. No pneumothorax. THYROID: No thyroid lesions. HEART AND PERICARDIUM: Heart size is normal. No pericardial effusion. CORONARY ARTERIES: Coronary artery calcification is seen. VESSELS: Thoracic aorta is not dilated. MEDIASTINUM AND MISAEL: No mediastinal or hilar adenopathy. Esophagus is unremarkable. No hiatal hernia. UPPER ABDOMEN: No acute pathology. BONES: No suspicious lytic or blastic abnormality. CT/Chest without Contrast IMPRESSION: No change in 4 mm noncalcified left lower lobe nodule consistent with a noncalcified granuloma. Electronically Signed: Jeffrey Warner MD at 9:04 EDT ,
== END | disposition home or self-care (01) ==
LOC: CT 07:08
PROVIDERS: Referring Provider Internal Medicine Pulmonary Disease; Visit Provider Internal Medicine Pulmonary Disease
DX: R91.1 Solitary pulmonary nodule (principal)
CPT/HCPCS: 71250

== ENCOUNTER → 2022-03-05 | Outpatient (CLI) | payer MEDICARE, OTHER, SELFPAY ==
--- NOTE | 2022-03-05 07:00 | CT_ITS ---
HISTORY: R91.1. TECHNIQUE: Helically acquired images were obtained of the chest without contrast. A radiation dose optimization technique was used for this scan. 853 images. COMPARISON: 11/19/2021. PET-CT 02/17/2021. FINDINGS: LARGE AIRWAYS: Patent. LUNGS: Stable 5 mm noncalcified left lower lobe nodule on image 66/133. Stable 3 mm noncalcified right upper lobe nodules on images 19 and 38. Stable 2 mm groundglass right upper lobe nodule laterally on image 59. Unchanged mild patchy and groundglass opacities in the dependent right lower lobe. PLEURA: No pneumothorax or significant pleural effusion. HEART/PERICARDIUM: Borderline cardiomegaly with coronary artery bypass graft. Midline sternotomy. No pericardial effusion. VESSELS: Thoracic aorta tortuous and nondilated. MEDIASTINUM/MISAEL: No pathologically enlarged adenopathy. Stable 1.7 cm right thyroid nodule. UPPER ABDOMEN: Gastric postoperative change. Small left renal cyst. BONES: Degenerative change. T6 and L1 vertebral body hemangioma is incidentally noted. CT/Chest without Contrast IMPRESSION: No significant interval change in pulmonary nodules measuring up to 5 mm in the left lower lobe. Chronic atelectasis and scarring in the right lower lobe. Other chronic findings as above. Electronically Signed: Cindi Flores MD at 10:35 EST ,
== END | disposition home or self-care (01) ==
LOC: CT 06:58
PROVIDERS: Referring Provider Internal Medicine Pulmonary Disease; Visit Provider Internal Medicine Pulmonary Disease
DX: R91.1 Solitary pulmonary nodule (principal)
CPT/HCPCS: 71250

== ENCOUNTER → 2022-03-19 | Outpatient (CLI) | payer MEDICARE, OTHER, SELFPAY ==
--- NOTE | 2022-03-19 10:26 | ECHOD_ITS ---
Reason For Study: Dyspnea Procedure This was a 2D Doppler, Color Flow transthoracic echocardiogram. Exam performed in department. Left Ventricle Normal LV size. The estimated ejection fraction is 60 %. No evidence for diastolic dysfunction. No regional wall motion abnormalities noted. Right Ventricle Normal RV size. Normal systolic function. Atria The left atrium is mildly enlarged. Normal right atrium. No doppler evidence for ASD. Mitral Valve There is no mitral valve stenosis. Trivial mitral valve insufficiency. Tricuspid Valve There is no tricuspid stenosis. Unable to estimate RV systolic pressure due to insufficient tricuspid regurgitant envelope. Trivial tricuspid valve insufficiency. Aortic Valve Trisinus/trileaflet aortic valve. Mild diffuse aortic valve thickening. There is no aortic stenosis. Mild (1+) aortic valve insufficiency. Pulmonic Valve There is no pulmonic valvular stenosis. No pulmonic valve insufficiency. Great Vessels The ascending aorta is mildly dilated. Pericardium/Pleural No pericardial effusion. MMode/2D Measurements & Calculations LVIDd: 5.7 cm IVSd: 1.3 cm Ao root diam: 4.0 cm LVIDs: 3.7 cm LVPWd: 1.4 cm RVDd: 3.2 cm FS: 34.7 % LAV(MOD-bp): 40.4 ml LVAd ap4: 32.0 cm2 SV(MOD-sp4): 70.1 ml LAV(MOD-bp) Indexed: 18.2 ml/m2 LVLd ap4: 7.7 cm LAV(MOD-sp2): 48.8 ml EDV(MOD-sp4): 106.5 ml LAV(MOD-sp4): 33.3 ml EDV(sp4-el): 112.6 ml LVAs ap4: 16.7 cm2 LVLs ap4: 6.5 cm ESV(MOD-sp4): 36.4 ml ESV(sp4-el): 36.8 ml EF(MOD-sp4): 65.8 % EF(sp4-el): 67.4 % SV(sp4-el): 75.8 ml LA A4 area: 14.2 cm2 LA dimension(2D): 4.2 cm RA A4 area: 9.4 cm2 Doppler Measurements & Calculations MV E max marlon: 96.7 cm/sec Lat Peak E' Marlon: 10.9 cm/sec Med Peak E' Marlon: 5.5 cm/sec MV A max marlon: 74.0 cm/sec E/E' lat: 8.9 E/E' med: 17.6 MV E/A: 1.3 Ao V2 max: 142.3 cm/sec LV V1 max: 111.0 cm/sec PA V2 max: 84.7 cm/sec Ao max P.1 mmHg LV V1 max P.9 mmHg Ao V2 mean: 94.4 cm/sec Ao mean P.9 mmHg Ao V2 VTI: 32.3 cm TR max marlon: 247.4 cm/sec TR max P.5 mmHg ECHO/Echo Complete Interpretation Summary The estimated ejection fraction is 60 %. No evidence for diastolic dysfunction. The left atrium is mildly enlarged. Trivial mitral valve insufficiency. Mild (1+) aortic valve insufficiency. The ascending aorta is mildly dilated. Ordering Physician: Rudy Schmitt V Referring Physician: Brittany Mercer Performed By: Kelsie Shipley, RDCS, RVT
== END | disposition home or self-care (01) ==
LOC: CVS 10:20
PROVIDERS: Referring Provider Internal Medicine Pulmonary Disease; Visit Provider Internal Medicine Pulmonary Disease
DX: R06.00 Dyspnea, unspecified (principal)
CPT/HCPCS: 93306

== ENCOUNTER 2022-12-30 10:30 | Outpatient (RCR) | payer MEDICARE, OTHER, SELFPAY ==
--- NOTE | 2022-10-27 15:40 | HP.PTEVAL_ITS ---
Patient's Visit Information Visit Information Visit Information: DIOMEDES CASE is a 67 year old F referred to Physical Therapy by KJ Harrington with a diagnosis of L knee OA. Date of Evaluation: 10/27/22 Physical Therapist: Clifford Segovia DPT Visit Plan Frequency: 2x /Week Duration: 6 Weeks Plan: Start with L knee ROM, general mobility, gait progression and LLE strengthening in aquatic setting. Pt. ordered at bathing suit, but did not want to schedule until she has one. She also is going to have cataracts removed from both eyes in early Nov. Pt. may wait until after her surgery to schedule, p ending baiting suit arrival. Subjective Subjective: Pt. is here today for her initial evaluation with diagnosis of L knee OA. Pt. reports having increased pain for ~3 weeks now. No mech of injury, but started gradually. Pt. eventually went into ortho and was found to have severe OA of L knee. Pt. did not know which compartment or whether it was thro ughout her knee. Pt. reports no pain at rest, but has severe pain during WBing and with knee flexion positioning. Pt. has difficulty walking, stairs and with getting LLE in/out of car. Pt. did have an injection 2 days ago, unsure if it has been helpful yet. Pt. is now using a FWW, where she was not using one before. PMH: bleeding ulcer, CODP with use of CPAP. Pt. is going to have her cataract removed in early november and currently does no own a bathing suit, but is waiting for one in the mail. She is going to try and do some PT in the pool once bathing suit arrives if it before her surgery in the first 2 weeks of November. Pain L knee: Pain Intensity (Out of 10): 0 Pain Intensity Range: 0 and 8 Objective Objective: POSTURE: pt. had pretty flexed posture with heavy use of AD. Pt. has wide CARLA in stance. PALPATION: pt. is very tender at lateral joint line of L knee. Not as much along medial joint line. NEURO: Pt. has normal sensation and normal achilles DTR bilaterally. ROM: : knee: Pt. unable to lie down due to back pain, seated ROM of L knee was 0-0-82deg. R knee 0-0-117deg. MMT: RLE 5/5 throughout. LLE: ankle 5/5 throughout; knee: ext 13#, flexion 11#; hip: flexion 4#. in sitting. GAIT: Pt. heavily uses FWW during gait during L stance phase of pattern. decreased R step length noted. Pt. has marked increased L knee genu valgum in standing worse with L stance phase. Pt. was able to ambulate 200' DENIS with FWW, but had marked increase in pain and decreased tempo. STAIRS: pt. able to complete to pattern, but pretty pain to complete with use of BHR. Balance/Special Test Scores Lower Extremity Functional Score: 21 Goals Goal 1:: LTG: Pt. to be I with HEP. Goal Time Frame: 4-6 Weeks Goal 2:: STG: pt. to sleep throughout the night without increase in symptoms. Goal Time Frame: 2-4 Weeks Goal 3:: LTG: Pt. to have increased L knee ROM to 0-0-120deg. with minimal increase in symptoms. Goal Time Frame: 4-6 Weeks Goal 4:: LTG: pt. to have increased LLE strength to at least 4+/5 throughout. Goal Time Frame: 4-6 Weeks Goal 5:: LTG: Pt. to ambulate with FWW unlimited distances with 1-2/10 pain in L knee. Goal Time Frame: 4-6 Weeks Goal 6:: LTG: pt. to negotiate 1 flight of stairs with 2 HR with reciprocal pattern without increase in symptoms. Goal Time Frame: 4-6 Weeks Rehabilitation Potential Physical Therapy Diagnosis: Pt. has signs and symptoms consistent with L knee OA. Pt. has marked loss of motion and strength, but is also hyper sensitive to touch and high levels of pain with any flexion of her L knee. Pt. would benefit from PT in aquatic setting to allow for better tolerance with gait and functional mobility. Rehabilitation Potential: Fair Anticipated Interventions Patient/Client Instruction: Educate patient on: Condition, Plan of Care, Risk Factors and Benefits of Fitness Program For the Purpose of:: To improve self management, To prevent re-injury, To improve ability to perform tasks related to life management and To improve tolerance to ADL's Therapeutic Exercise to Include: Strength training, Power training, Balance training, Body mechanics, Postural training, Flexibilty training, Gait and locomotor training and In an aquatic setting For the Purpose of:: To decrease pain, To increase ROM, To increase oxygenation perfusion, To improve muscle performance and motor function, To improve ability to perform ADL's, To increase tolerance to activity/condition/position, To improve ability of physical actions for home/community/work/leisure, To improve gait and locomotor functions, To improve health of tissue, To decrease soft tissue restriction, To increase flexibility/ROM and To improve safety with gait Text: Thank you for the opportunity to evaluate your patient. For Medicare and Medicare HMO plans, please review the plan of care and approve it. It will need to be FAXED BACK to us at [phone] for Medicare purposes. For Medicare only, by signing this I certify the plan of care. Please let me know if there are questions or concerns regarding this plan of care. Physician Signature: Date:
== END 2022-12-30 19:00 | disposition home or self-care (01) ==
LOC: PT 10:30
PROVIDERS: Referring Provider Physician Assistant Surgical; Visit Provider Physician Assistant Surgical
DX: M17.12 Unilateral primary osteoarthritis, left knee (principal); M25.562 Pain in left knee
CPT/HCPCS: 97113; 97161; 97530

== ENCOUNTER → 2023-01-17 | Outpatient (CLI) | payer MEDICARE, OTHER, SELFPAY ==
--- NOTE | 2023-01-17 07:33 | CDU_ITS ---
Reason For Study: Amaurosis Fugax Rt. Velocities/BP Lt. Velocities/BP Prox CCA 106.5/13.3 cm/sec. Prox CCA 89.1/16.7 cm/sec. Mid CCA 97.4/18.8 cm/sec. Mid CCA 96.5/19.2 cm/sec. Dist CCA 104.7/22.5 cm/sec. Dist CCA 79.3/15.5 cm/sec. Prox ICA 88.8/10.2 cm/sec. Prox ICA 62.5/11.9 cm/sec. Mid ICA 76.1/17.6 cm/sec. Mid ICA 101.8/24.8 cm/sec. Dist ICA 119.9/34.2 cm/sec. Dist ICA 108.9/35.8 cm/sec. Rt. ICA/CCA = 1.2. Prox ECA 69.5/6.2 cm/sec. Prox ECA 101.4/12.4 cm/sec. Lt. Vert. 68.6/11.9 cm/sec. Rt. Vert. 48.7/11.9 cm/sec. Right Extracranial There is homogeneous, smooth atherosclerotic plaque noted in the right common carotid artery. The right common carotid artery is tortuous. There is heterogeneous, irregular atherosclerotic plaque noted in the right internal carotid artery. The right internal carotid artery is very tortuous. There is heterogeneous, irregular atherosclerotic plaque noted in the right external carotid artery. The right external carotid artery is tortuous. Antegrade flow is noted in the right vertebral artery. Artery is tortuous. Left Extracranial There is intimal thickening but no significant atherosclerotic plaque noted in the left common carotid artery. There is heterogeneous, irregular atherosclerotic plaque noted in the left internal carotid artery. The left internal carotid artery is very tortuous. There is homogeneous, smooth atherosclerotic plaque noted in the left external carotid artery. The left external carotid artery is tortuous. Antegrade flow is noted in the left vertebral artery. Artery is tortuous. Procedure Carotid Duplex 29230. This is a Carotid Duplex examination using B-mode, color flow and specral Doppler. The exam was diagnostic. Exam performed in department. VL/Carotid Duplex Ultrasound Interpretation Summary Mild (<50%) stenosis right extracranial internal carotid. Mild (<50%) stenosis left extracranial internal carotid. Patent and antegrade vertebrals bilaterally. Ordering Physician: Brian Jimenez Referring Physician: Brian Jimenez Performed By: Norm Haley RVT
== END | disposition home or self-care (01) ==
LOC: CVS 07:32
PROVIDERS: Referring Provider Ophthalmology; Visit Provider Ophthalmology
DX: G45.3 Amaurosis fugax (principal)
CPT/HCPCS: 93880

== ENCOUNTER 2024-04-28 12:51 | Emergency (ER) | payer MEDICARE, OTHER, SELFPAY ==
[2024-04-28 12:53] VITALS: BP 162/102; PULSE 75; RESP 16; TEMP 36.6; O2SAT 100
--- NOTE | 2024-04-28 13:36 | RAD_ITS ---
INDICATION: fall EXAMINATION/TECHNIQUE: X-RAY - RIGHT XR Shoulder Min 2 Views 2 VIEWS COMPARISON: No relevant prior comparison study available FINDINGS: SOFT TISSUES: No soft tissue swelling or gas. No radiopaque foreign body. BONES/JOINTS: No acute fracture or subluxation.. Normal alignment. Mild degenerative changes of the acromioclavicular joint.. No sclerotic or destructive changes observed. RAD/Shoulder min 2 Views IMPRESSION: No evidence of acute fracture or dislocation. Electronically Signed: Ace Puente MD at 15:49 EST ,
--- NOTE | 2024-04-28 13:36 | CT_ITS ---
INDICATION: head injury EXAMINATION: CT BRAIN - CT Head or Brain W/O Contrast Injection TECHNIQUE: Multiple axial images were obtained of the head without intravenous contrast. The protocol utilizes one or more of the following dose reduction techniques: automated exposure control, adjustment of mA and/or kV according to patient size,and/or use of iterative reconstruction technique. IV Contrast dosage and agent: None. RADIATION DOSAGE (If Supplied By Facility): CTDIvol = ( 44.99 ) mGy, DLP = ( 829.85 ) mGycm COMPARISON: No relevant prior comparison study available FINDINGS: BRAIN PARENCHYMA: No intra- or extra-axial hemorrhage. No evidence of acute infarct. No intracranial mass or mass effect. There is preservation of the stern/white matter interface. Posterior fossa structures are unremarkable. CSF SPACES: Appropriate for age. No hydrocephalus. Basal cisterns are patent. CALVARIUM, SKULL BASE, PARANASAL SINUSES AND MASTOID AIR CELLS: Mild mucosal thickening of the maxillary sinuses. Mild fluid in the left mastoid air cells. Posterior scalp soft tissue swelling. ORBITS: Previous bilateral cataract surgery. CT/Brain/Head without Contrast IMPRESSION: No acute intracranial process. Electronically Signed: Ace Puente MD at 15:34 EST ,
--- NOTE | 2024-04-28 13:36 | CT_ITS ---
INDICATION: fall EXAMINATION: CT CERVICAL SPINE - CT Spine Cervical W/O Contrast Injection TECHNIQUE: Helically acquired images were obtained of the cervical spine. 2D reformatted images were reviewed. The protocol utilizes one or more of the following dose reduction techniques: automated exposure control, adjustment of mA and/or kV according to patient size,and/or use of iterative reconstruction technique. IV Contrast dosage and agent: None. RADIATION DOSAGE (If Supplied By Facility): CTDIvol = ( 24.53 ) mGy, DLP = ( 454.80 ) mGycm COMPARISON: No relevant prior comparison study available FINDINGS: VERTEBRAE: No fracture or traumatic subluxation. Diffuse demineralization of the osseous structures. Normal alignment. Normal craniocervical junction and cervicothoracic junction. DISCS and SPINAL CANAL: Narrowing of C6-C7 disc space. Endplate spondylosis. Mild degenerative changes in the facet joints. No critical stenosis. NECK SOFT TISSUES: No prevertebral soft tissue swelling. There is no cervical adenopathy. LUNG APICES: Clear. CT/Spine Cervical without Contras IMPRESSION: No evidence of acute cervical spinal fracture or spondylolisthesis. Electronically Signed: Ace Puente MD at 15:40 EST ,
--- NOTE | 2024-04-28 13:38 | EDS_ITS ---
HPI <EDEL Black - Last Filed: 04/28/24 15:39> History of Present Illness Chief Complaint: Fall Narrative Narrative: Patient is a 69-year-old female with history of MS, COPD who presents to the emergency department after mechanical fall while carrying groceries. Patient dates she slipped backwards, striking the back of her head on the cement. She denies any LOC however states it did take her a while to get up. She was brought in via private vehicle. Patient denies being on any blood thinners. Tetanus vaccination unknown. Also complains of right shoulder pain. [facility] <EDEL Black - Last Filed: 04/28/24 15:39> [facility] Medical History (Updated 04/28/24 @ 15:37 by EDEL Black) Wears glasses Post-menopausal Alcohol use Arthritis Restless legs Anemia High cholesterol Back pain Injury of back History of ulceration Gastric reflux Former smoker Sleep apnea Asthma COPD (chronic obstructive pulmonary disease) Shortness of breath on exertion History of pain when walking History of echocardiogram History of stress test Hypertension Cardiology follow-up encounter Home Medications ?Medication ?Instructions ?Recorded ?Last Taken ?Type omeprazole 20 mg capsule,delayed 40 mg PO BID 08/28/13 08/21/21 History release furosemide 20 mg tablet 20 mg PO DAILY 06/02/19 Unknown History gabapentin 300 mg capsule 400 mg PO Q6H 06/02/19 Unknown History losartan 100 mg tablet 100 mg PO DAILY 06/02/19 08/21/21 History metoprolol tartrate 25 mg tablet 25 mg PO DAILY 06/02/19 08/21/21 History ropinirole 1 mg tablet 1 mg PO TID 06/02/19 Unknown History albuterol sulfate 90 mcg/actuation 2 puff inhalation PRN PRN COPD 08/18/21 Unknown History aerosol inhaler amlodipine 2.5 mg tablet 2.5 mg PO DAILY 08/18/21 08/21/21 History atorvastatin 40 mg tablet 40 mg PO DAILY 08/18/21 Unknown History cyclosporine 0.05 % eye drops in a 1 drp EACH EYE Q12H 08/18/21 Unknown History dropperette (Restasis) ferrous gluconate 325 mg (37.5 mg 648 mg PO DAILY 08/18/21 Unknown History iron) tablet fluticasone furoate 200 1 inh inhalation DAILY 08/18/21 Unknown History mcg-vilanterol 25 mcg/dose inhalation powder (Breo Ellipta) mirtazapine 7.5 mg tablet 7.5 mg PO QHS 08/18/21 Unknown History montelukast 10 mg tablet 10 mg PO DAILY 08/18/21 Unknown History oxycodone-acetaminophen 2.5 mg-325 1 tab PO Q4H PRN pain 7 days #14 08/21/21 Unknown Rx mg tablet tabs sulfamethoxazole 800 1 tab PO BID 08/31/21 Unknown History mg-trimethoprim 160 mg tablet (Bactrim DS) ciprofloxacin HCl 500 mg tablet 500 mg PO BID #6 tabs 09/04/21 Unknown Rx (Cipro) ibuprofen 600 mg tablet 600 mg PO Q6H PRN severe pain 09/04/21 Unknown Rx (scale score 7-10) #14 tabs oxycodone-acetaminophen 5 mg-325 1 tab PO Q6H PRN pain 7 days #20 09/04/21 Unknown Rx mg tablet tabs hydrocodone-acetaminophen 5-325mg 1 tab PO Q6H PRN PRN Pain 3 days 04/28/24 Unknown Rx 5mg-325mg #10 TABLETS Allergy/AdvReac Type Severity Reaction Status Date / Time hydromorphone (From Dilaudid) AdvReac Intermediate Other Verified 04/28/24 12:53 codeine AdvReac Nausea/Vom/ Verified 04/28/24 12:53 Diarrhea meloxicam (From Mobic) AdvReac Other Verified 04/28/24 12:53 morphine AdvReac Other Verified 04/28/24 12:53 Penicillins AdvReac Other Verified 04/28/24 12:53 Surgical History History of cystoscopy History of cardiac catheterization Hx of gastric bypass Hx laparoscopic cholecystectomy Hx of heart bypass surgery Social History Smoking Status: Former smoker ROS <EDEL Black - Last Filed: 04/28/24 15:39> ROS ED ROS Narrative Constitutional: Negative for fever, chills, weight loss, weakness Eyes: Negative for vision loss, vision change, double vision ENT: Negative for any sore throat, ear pain, congestion Cardiovascular: Negative for any chest pain, tightness, palpitations Respiratory: Negative for any cough, sputum production, hemoptysis, dyspnea, dyspnea on exertion, orthopnea Gastrointestinal: Negative for any abdominal pain, nausea, vomiting, diarrhea, constipation, blood in stool, blood in vomit : Negative for any urinary frequency, dysuria, retention, blood in urine Muscle skeletal: Negative for any neck pain, back pain. Positive right shoulder pain Neurological: Negative for any syncope, dizziness. Positive for headache Skin: Negative for any rashes, itching, abrasions. Positive for laceration to the back of the head Psychiatric: Negative for any depression, anxiety, stress, suicidal ideation, homicidal ideation Hematologic: Negative for any excessive bruising, easy bleeding EXAM <EDEL Black - Last Filed: 04/28/24 15:39> Physical Exam Narrative Exam Narrative: Vital signs reviewed. HEET: Head normocephalic atraumatic, TMs clear bilaterally. Posterior pharynx is clear, moist mucous membranes. Nares clear bilaterally. Patient does have a 3 cm vertical laceration to the occiput. Patient's pupils are equal round reactive to light, negative for any hemotympanum or septal hematoma. Neck: Supple with no lymphadenopathy or tenderness. No signs of meningismus. Cardiac: Regular rate and rhythm no murmurs gallops or rubs, equal peripheral pulses bilaterally. Respiratory: Lungs clear to auscultation bilaterally. No chest tenderness. Abdomen: Soft, nontender, nondistended. No abdominal bruit or pulsatile masses. No hepatosplenomegaly Extremities: No peripheral edema, no signs of gross trauma or deformity. Active full range of motion of all extremities. Patient does have some pain to the right shoulder on palpation however does have full range of motion Neuro: Cranial nerves II through XII intact, no focal neurological deficits. Skin: Clean dry and intact with no rash, purpura, petechiae, vesicles or pustules. Laceration to the occiput Backs/flank: No CVA tenderness, no midline spinal tenderness, no deformity. Psych: Normal mood and affect. No SI, HI or acute psychosis. Const Vital Signs: 04/28/24 12:53 04/28/24 14:41 04/28/24 14:48 Temperature 97.9 F Temperature Source Oral Pulse Rate 75 67 Respiratory Rate 16 18 Respiratory Effort Normal Non-Labored Respiratory Depth Normal Respiratory Pattern Normal Blood Pressure 162/102 H 110/91 H Blood Pressure Mean 122 97 Pulse Ox 100 94 Oxygen Delivery Method Room Air Room Air 04/28/24 16:22 Temperature 98.5 F Temperature Source Pulse Rate 79 Respiratory Rate 16 Respiratory Effort Respiratory Depth Respiratory Pattern Blood Pressure 145/85 H Blood Pressure Mean 105 Pulse Ox 92 Oxygen Delivery Method <Dr. Regino Blackman DO - Last Filed: 04/28/24 16:31> Physical Exam Const Vital Signs: 04/28/24 12:53 04/28/24 14:41 04/28/24 14:48 Temperature 97.9 F Temperature Source Oral Pulse Rate 75 67 Respiratory Rate 16 18 Respiratory Effort Normal Non-Labored Respiratory Depth Normal Respiratory Pattern Normal Blood Pressure 162/102 H 110/91 H Blood Pressure Mean 122 97 Pulse Ox 100 94 Oxygen Delivery Method Room Air Room Air 04/28/24 16:22 Temperature 98.5 F Temperature Source Pulse Rate 79 Respiratory Rate 16 Respiratory Effort Respiratory Depth Respiratory Pattern Blood Pressure 145/85 H Blood Pressure Mean 105 Pulse Ox 92 Oxygen Delivery Method MDM <EDEL Black - Last Filed: 04/28/24 15:39> MDM Radiography Diagnostic Testing: Clinical Impression(s) from Imaging Studies Brain CT 04/28/24 13:36 IMPRESSION: No acute intracranial process. Electronically Signed: Ace Puente MD at 15:34 EST Reading Location ID and State: [email or web address] / [employer] Tel , Service support , Cervical Spine CT 04/28/24 13:36 IMPRESSION: No evidence of acute cervical spinal fracture or spondylolisthesis. Electronically Signed: Ace Puente MD at 15:40 EST , Shoulder X-Ray 04/28/24 13:36 IMPRESSION: No evidence of acute fracture or dislocation. Electronically Signed: Ace Puente MD at 15:49 EST , Treatment and Re-Evaluation :: Differential diagnosis includes however is not limited to: Closed head injury, concussion, skull fracture, scalp laceration, intracranial bleeding, cervical strain, cervical fracture, right shoulder strain Patient appears generally well, vital signs are stable, patient is nontoxic- appearing. Presenting to the emergency department after mechanical fall injuring the back of her head neck as well as the right shoulder. CT scans of the head and neck will be obtained. Patient does have a 3 cm vertical laceration, this will be cleansed, and stapled. Patient will receive x-rays of the right shoulder. [place] was given for the patient's pain. Tetanus vaccination be updated. All radiologic examinations were read, reviewed by the emergency department attending. From these reads, a plan of care will be put in place. Patient's x-ray of the right shoulder was unremarkable. Patient's CT scan the brain and cervical spine showed no acute pathology. Upon washing the patient's wound to the back of the head. It seemed that the laceration was roughly 6 cm in length. I was able to irrigate with 100 cc normal saline. Anesthetized area with 4 to 5 cc of lidocaine with epinephrine. Sterile gloves, sterile drapes were used. I was able to place 11 nestor to close the wound. Patient tolerated well. Patient will be discharged home, she is given [place] for home, instructed to perform gentle stretching ice and heat. She was given strict return precaution. <Dr. Regino Blackman, DO - Last Filed: 04/28/24 16:31> MDM Radiography Diagnostic Testing: Clinical Impression(s) from Imaging Studies Brain CT 04/28/24 13:36 IMPRESSION: No acute intracranial process. Electronically Signed: Ace Puente MD at 15:34 EST , Cervical Spine CT 04/28/24 13:36 IMPRESSION: No evidence of acute cervical spinal fracture or spondylolisthesis. Electronically Signed: Ace Puente MD at 15:40 EST , Shoulder X-Ray 04/28/24 13:36 IMPRESSION: No evidence of acute fracture or dislocation. Electronically Signed: Ace Puente MD at 15:49 EST , Treatment and Re-Evaluation :: Differential diagnosis includes however is not limited to: Closed head injury, concussion, skull fracture, scalp laceration, intracranial bleeding, cervical strain, cervical fracture, right shoulder strain Patient appears generally well, vital signs are stable, patient is nontoxic- appearing. Presenting to the emergency department after mechanical fall injuring the back of her head neck as well as the right shoulder. CT scans of the head and neck will be obtained. Patient does have a 3 cm vertical laceration, this will be cleansed, and stapled. Patient will receive x-rays of the right shoulder. [place] was given for the patient's pain. Tetanus vaccination be updated. All radiologic examinations were read, reviewed by the emergency department attending. From these reads, a plan of care will be put in place. Patient's x-ray of the right shoulder was unremarkable. Patient's CT scan the brain and cervical spine showed no acute pathology. Upon washing the patient's wound to the back of the head. It seemed that the laceration was roughly 6 cm in length. I was able to irrigate with 100 cc normal saline. Anesthetized area with 4 to 5 cc of lidocaine with epinephrine. Sterile gloves, sterile drapes were used. I was able to place 11 nestor to close the wound. Patient tolerated well. Patient will be discharged home, she is given [place] for home, instructed to perform gentle stretching ice and heat. She was given strict return precaution. I have personally performed a face to face assessment of the patient and have reviewed the MELINDA Note. I performed a substantive portion of the visit including all aspects of the following. My [place] findings include: History is 69-year-old female sustained a fall while carrying groceries. No reported loss of consciousness. Noted occipital scalp laceration shoulder pain. She is not on blood thinners. Exam is there is a approximately 6 cm laceration to the occiput. Neurovascular intact. GCS 15. Medical Decison Making CT of the brain cervical spine were negative for acute fracture or hemorrhage. My independent interpretation the plain films of the shoulder is no acute fracture. Local wound care was performed by nurse practitioner. Follow-up was instructed. Patient understands the risk of delayed bleed. Return if worsening or concerns Discharge Plan Triage Chief Complaint: Fall ED Midlevel Provider: David Hamilton ED Provider: Regino Blackman Dx/Rx/DC Orders Clinical Impression: Fall, CHI (closed head injury), Laceration of scalp, Cervical muscle strain, Left shoulder strain Instructions: ED Head Injury (Adult), ED Laceration Scalp Stitches or [place], ED Neck Sprain or Strain, ED Muscle Strain, Extremity Prescriptions: New hydrocodone-acetaminophen 5-325 mg tablet 1 tab PO Q6H PRN PRN (Reason: Pain) 3 Days Qty: 10 0RF No Action omeprazole 20 MG capsule 40 mg PO BID losartan 100 MG tablet 100 mg PO DAILY metoprolol tartrate 25 MG tablet 25 mg PO DAILY ropinirole 1 MG tablet 1 mg PO TID gabapentin 300 MG capsule 400 mg PO Q6H furosemide 20 MG tablet 20 mg PO DAILY atorvastatin 40 mg tablet 40 mg PO DAILY Patient Comments: take 1 tablet by mouth once daily amlodipine 2.5 mg tablet 2.5 mg PO DAILY Patient Comments: take 1 tablet by mouth once daily montelukast 10 mg tablet 10 mg PO DAILY Patient Comments: take 1 tablet by mouth once daily albuterol sulfate 90 mcg/actuation HFA aerosol inhaler 2 puff INHALATION PRN PRN (Reason: COPD) Patient Comments: INHALE 2 PUFFS UP TO FOUR TIMES A DAY NEEDED cyclosporine [Restasis] 0.05 % Dropperette 1 drp EACH EYE Q12H mirtazapine 7.5 mg tablet 7.5 mg PO QHS Patient Comments: take 1 tablet by mouth once daily AT 7PM ferrous gluconate 325 mg (37.5 mg iron) Tablet 648 mg PO DAILY Breo Ellipta 200-25 mcg/dose blister with device 1 inh INHALATION DAILY Patient Comments: inhale 1 puff by mouth and INTO THE LUNGS once daily with [facility] oxycodone-acetaminophen 2.5-325 mg tablet 1 tab PO Q4H PRN (Reason: pain) 7 Days Qty: 14 0RF sulfamethoxazole-trimethoprim [Bactrim DS] 800-160 mg Tablet 1 tab PO BID ciprofloxacin HCl [Cipro] 500 mg tablet 500 mg PO BID Qty: 6 0RF oxycodone-acetaminophen 5-325 mg tablet 1 tab PO Q6H PRN (Reason: pain) 7 Days Qty: 20 0RF ibuprofen 600 mg tablet 600 mg PO Q6H PRN (Reason: severe pain (scale score 7-10)) Qty: 14 0RF Primary Care Provider: Brittany Mercer Referrals: Brittany Mercer, DO [Primary Care Provider] - Activity Restrictions/Additional Instructions: You have 11 nestor to the back your head, this is to be removed in 7 to 10 days. You may wash your hair like normal however try not to digging in the back your head. Let the water and soap run over it. Take the [place] as needed for severe pain. You may use Tylenol if the pain is minor. You will be sore for the next several days. Print Language: Yakut Disposition Disposition: Home, Self Care Discharge Date/Time: 04/28/24 16:23
[2024-04-28] MEDS: Diphth,Pertuss(Acell),Tet Vac 0.5 ML Vial IM (14:02)
[2024-04-28] MEDS: Lidocaine 1% /Epi 1:100 (20ml) 20 ML Vial INFILT (14:02)
[2024-04-28] MEDS: HYDROcodone Bitartrate/Apap 5/325 Tablet PO (14:02)
[2024-04-28] MEDS: Lidocaine/Epi/Tetracaine 50 ML 1 APPLIC TOPICAL (14:03)
[2024-04-28 14:48] VITALS: BP 110/91; PULSE 67; RESP 18; O2SAT 94; BMI 42.7
[2024-04-28 16:22] VITALS: BP 145/85; PULSE 79; RESP 16; TEMP 36.9; O2SAT 92
== END 2024-04-28 16:23 | disposition home or self-care (01) ==
PROVIDERS: Emergency Provider Emergency Medicine; Visit Provider Emergency Medicine
DX: S01.01XA Laceration without foreign body of scalp, initial encounter (principal); J44.9 Chronic obstructive pulmonary disease, unspecified; S16.1XXA Strain of muscle, fascia and tendon at neck level, initial encounter; Z87.891 Personal history of nicotine dependence; Z23 Encounter for immunization; W19.XXXA Unspecified fall, initial encounter